=== PATIENT | female | born 1970 | race Two or more races ===

== ENCOUNTER 2019-01-20 16:49 | Emergency (ER) | payer OTHER ==
[~2019-01-20] VITALS: Ht 162.6 cm; Wt 56.2 kg
== END 2019-01-20 19:17 | disposition home or self-care (01) ==
LOC: ER 16:49
DX: M70.21 Olecranon bursitis, right elbow (principal)

== ENCOUNTER → 2019-01-20 | Outpatient (CLI) | payer OTHER | END | disposition home or self-care (01) | LOC: RAD 15:58 | DX: M25.521 Pain in right elbow (principal) ==

== ENCOUNTER → 2021-08-11 08:00 | Outpatient (CLI) | payer OTHER ==
[~2021-08-11] VITALS: Ht 160 cm; Wt 56.2 kg
[~2021-08-11 08:00] MED LIST: IRON PO
== END | disposition home or self-care (01) ==
LOC: LAB 08:00 → SURH 08-15 07:00 → EDSTATUS 08-15 12:15 → SURH 08-15 12:15
PROVIDERS: ATTEND Obstetrics & Gynecology
DX: D25.1 Intramural leiomyoma of uterus (principal); N80.0 Endometriosis of uterus; D64.89 Other specified anemias; Z20.828 Contact with and (suspected) exposure to other viral communicable diseases

== ENCOUNTER 2024-08-25 08:23 | Emergency (ER) | payer OTHER ==
[~2024-08-25] VITALS: Ht 160 cm; Wt 56.2 kg
[2024-08-25] MEDS ORDERED: KETOROLAC TROMETHAMINE 60 MG VIAL IM STA (08:42)
[2024-08-25] MEDS ORDERED: DEXAMETHASONE SODIUM PHOSPHATE 4 MG/ML VIAL IM STA (08:42)
[2024-08-25] MEDS ORDERED: ACETAMINOPHEN 500 MG GEL..CAP PO STA (08:43)
[2024-08-25] MEDS ORDERED: DEXAMETHASONE SODIUM PHOSPHATE 4 MG/ML VIAL ONE (08:45)
[2024-08-25] MEDS ORDERED: KETOROLAC TROMETHAMINE 60 MG VIAL IM ONE (08:45)
[2024-08-25] MEDS ORDERED: ACETAMINOPHEN 500 MG GEL..CAP PO ONE (08:45)
== END 2024-08-25 09:15 | disposition home or self-care (01) ==
LOC: ER 08:33
DX: M77.8 Other enthesopathies, not elsewhere classified (principal)

== ENCOUNTER 2024-08-26 13:23 | Outpatient (CLI) | payer OTHER | END 2024-08-26 13:32 | disposition home or self-care (01) | LOC: RAD 13:23 | PROVIDERS: ATTEND Physical Medicine & Rehabilitation | DX: M25.512 Pain in left shoulder (principal); M54.50 Low back pain, unspecified; W19.XXXA Unspecified fall, initial encounter; X58.XXXA Exposure to other specified factors, initial encounter; Y93.9 Activity, unspecified; Y92.9 Unspecified place or not applicable; Y99.9 Unspecified external cause status ==